=== PATIENT | male | born 1995 | race Hispanic/Latino ===

== ENCOUNTER 2017-07-08 09:05 | Emergency (ER) | payer BC ==
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
[2017-07-08] MEDS ORDERED: Ibuprofen 800 MG TAB ONE (09:48)
== END 2017-07-08 09:51 | disposition home or self-care (01) ==
LOC: ERS 09:05
DX: S60.221A Contusion of right hand, initial encounter (principal); F17.290 Nicotine dependence, other tobacco product, uncomplicated; V49.9XXA Car occupant (driver) (passenger) injured in unspecified traffic accident, initial encounter

== ENCOUNTER 2018-09-09 11:19 | Emergency (ER) | payer BC ==
[2018-09-09] MEDS ORDERED: HYDROcodone/Acetaminophen 10/325 mg Tablet ONE (12:01)
--- NOTE | 2018-09-09 13:59 | RAD ---
RIGHT KNEE 3 VIEWS: HISTORY: Right knee pain. FINDINGS: Joint spaces are preserved. No acute fracture, dislocation, or fluid distention of the suprapatellar bursa. IMPRESSION: No acute osseous abnormalities are demonstrated. POS: [facility]
== END 2018-09-09 13:04 | disposition home or self-care (01) ==
LOC: ERS 11:19
DX: M23.91 Unspecified internal derangement of right knee (principal)

== ENCOUNTER 2018-09-21 13:45 | Outpatient (CLI) | payer BC ==
--- NOTE | 2018-09-21 14:38 | RAD ---
SINUSES COULTER VIEW FOR MRI CLEARANCE: Indications: MRI clearance, assess metal in eyes. FINDINGS: Coulter view shows no evidence of metallic density overlying either orbit. Patient is cleared for MRI. POS: [facility]
--- NOTE | 2018-09-21 16:00 | MRI ---
MRI RIGHT KNEE WITHOUT CONTRAST: 09/21/18 HISTORY: S82.419A - sprain of the medial collateral ligament of the knee. COMPARISON: None. FINDINGS: MEDIAL MENISCUS: There is an undersurface flap of the body of the medial meniscus. Extends to the medial meniscotibial ligament. Root attachment is intact. This involves the peripheral one third of the meniscus. LATERAL MENISCUS: Intact. The ACL, PCL and LCL are intact. There is a complete rupture of the medial collateral ligament, anterior longitudinal and posterior ob lique fibers from the tibial insertion. The distal fibers are retracted approximately 2 cm just dista l to the joint line. There is also a tear of the medial meniscotibial ligament. This tear is partial ly torn from the tibia as well as partial tearing from the meniscus itself. EXTENSOR MECHANISM: The quadriceps tendon, patella and patellar tendon are intact. CARTILAGE: Patellofemoral compartment: Intact. Medial compartment: Intact. Lateral compartment: Intact. BONES: No acute fracture or malalignment. MUSCLES: The muscle signal and bulk is normal. IMPRESSION: Full thickness rupture of the medial collateral ligament which appears to be likely avulsed from the tibial insertion, possible MCL stener. There is retraction approximately 2 cm with also tear of the d eep meniscotibial ligament. The tear involving the tibial insertion as well as tearing extending from the peripheral aspect of the meniscus. POS: [facility]
== END 2018-09-21 13:46 | disposition home or self-care (01) ==
LOC: BICMRI 13:45
PROVIDERS: ATTEND Orthopaedic Surgery
DX: S83.411A Sprain of medial collateral ligament of right knee, initial encounter (principal); S83.241A Other tear of medial meniscus, current injury, right knee, initial encounter
CPT/HCPCS: 70210

== ENCOUNTER 2018-09-28 00:54 | Emergency (ER) | payer BC ==
[2018-09-28] MEDS ORDERED: cefTRIAXone\\ROCEPHIN 2 GM VIAL ONE (01:22)
[2018-09-28 01:24] LABS: #Eosinphils 0.1 thou/uL (0.0-0.7); #Lymphocytes 2.6 thou/uL (1.20-3.40); #Monocytes 0.7 thou/uL (0.11-0.59); #Neutrophils 8.7 thou/uL (1.40-6.50); %Basophils 0.3 % (0.0-1.0); %Eosinophils 1.2 % (0.0-10.0); %Lymphocytes 21.1 % (21.0-51.0); %Neutrophils 71.4 % (42.0-75.0); Hemoglobin 16.5 g/dL (14.0-18.0); Mean Corpuscular Hemoglobin 31.7 pg (27.0-31.0); Mean Corpuscular Volume 90.7 fL (78.0-98.0); Mean Platelet Volume 8.3 fL (7.4-10.4); Platelet Count 248 thou/uL (130-400); RBC Distribution Width 11.2 % (11.5-14.5); Red Blood Cell (RBC) Count 5.21 mill/uL (4.70-6.10); White Blood Cell (WBC) Count 12.1 thou/uL (4.8-10.8)
[2018-09-28 01:45] LABS: ALT (SGPT) 206 U/L (8-55); AST (SGOT) 52 U/L (5-34); Albumin 4.5 g/dL (3.5-5.0); Alkaline Phosphatase 93 U/L (40-150); Anion Gap 14 mmol/L (10-20); BUN (Urea Nitrogen) 11 mg/dL (8.9-20.6); Bilirubin, Total 0.6 mg/dL (0.2-1.2); Calc. Creatinine Clearance 0 mL/min (70-130); Calcium 9.9 mg/dL (7.8-10.44); Carbon Dioxide 24 mmol/L (22-29); Chloride 103 mmol/L (98-107); Estimated GFR-MDRD Greater than 90; Globulin 3.1 g/dL (2.4-3.5); Glucose 87 mg/dL (70-105); Potassium 3.6 mmol/L (3.5-5.1); Protein, Total 7.6 g/dL (6.0-8.3); Sodium 137 mmol/L (136-145)
[2018-09-28] MEDS ORDERED: Dexamethasone 10 MG/ML VIAL ONE (02:23)
[2018-09-28] MEDS ORDERED: Clindamycin/D5W 900 mg/50 ml Premix Bag ONE (03:09)
--- NOTE | 2018-09-28 08:35 | CT ---
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 PT. Reports taking medication and states he cannot swallow at this time. PT. Denies fever. PT. Denies taking. TECHNIQUE: Axial computed tomography images of the neck with intravenous contrast. COMPARISON: No relevant prior studies available. FINDINGS: Oropharynx: There is oropharyngeal tonsillar prominence compatible with tonsillitis in the appropriat e clinical setting. Larynx: Epiglottis is normal in thickness. Submandibular/Parotid glands: Normal. Glands are normal in size. Thyroid: Normal. No enlarged or calcified nodules. Lymph nodes: Normal. No lymphadenopathy. Lung apices: Normal as visualized. Vasculature: No acute findings. Bones/joints: Normal. No acute fracture. Soft tissues: Normal. No significant soft tissue swelling. IMPRESSION: There is oropharyngeal tonsillar prominence compatible with tonsillitis in the appropriate clinical s etting. Thank you for allowing us to participate in the care of your patient. Dictated and Authenticated by: Satinder Gonzalez MD 09/28/2018 2:06 AM Central Time ([place] & [place]) CT NECK SOFT TISSUE POST CONTRAST: HISTORY: Pain. Fever. COMPARISON: None. FINDINGS: This report is in agreement with the preliminary report by [facility]. There is mild fullness of the nasopharynx and palatine tonsillar pillars. The aerodigestive tract is patent. The epiglottis has a normal caliber. There are mildly enlarged bilateral level II lymph nodes, measuring 1.8 x 1.3 on the right and 1.1 x 1.6 on the left. The central spinal canal is unremarkable. The upper mediastinum and lung apices ar e also unremarkable. Cervical spine vertebral body height is maintained. No fracture. IMPRESSION: Prominence of the lymphoid tissue in the aerodigestive tract, as well as in the left and right neck ( level II). Findings are presumed to be due to an infectious/inflammatory process. Correlate clinica lly. Continued surveillance as recommended. Fullness of the left and right palatine tonsils do rais e the possibility of tonsillitis. There is no evidence of a peritonsillar abscess. POS: [facility]
--- NOTE | 2018-10-01 12:54 | CON ---
DATE OF CONSULTATION: 09/28/2018 ER CONSULTATION SUBJECTIVE: Mr. Clark presented to the ER with sudden onset of tonsillar and uvular swelling. There was concern for potential epiglottitis, therefore ENT was called in to access via scope to make sure epiglottis was okay. At the time of arriving, ER physician reported that while he was appeared to be protecting airway, the concern was still there due to the fact that he had tonsil and uvula had swollen over such a rapid period of time. His symptoms began at 11 o'clock. That same evening, the patient had slight fever and difficulty swallowing his own secretions. OBJECTIVE: The patient was well-developed, well-nourished male. He was sitting comfortably, however, was visibly having trouble swallowing his own secretions, though airway appeared to be intact. The patient's nasal area was sprayed with combo spray in preparation for flexible scope examination. Flexible scope examination revealed a normal nasal passage. Upon proceeding with scope, it was viewed that epiglottis was normal and there was no swelling. Both vocal cords were able to be visualized and moved normally with phonation. Airway opened normally with inspiration. No evidence of epiglottitis or airway compromise was noted. ASSESSMENT: Acute tonsillitis with uvulitis. No sign of epiglottitis present. PLAN: Recommended IV clindamycin along with steroids, that ER had previously given to follow up with ENT office first thing in the morning. Job ID: [id number]
== END 2018-09-28 04:50 | disposition home or self-care (01) ==
LOC: ERS 00:54
DX: J03.90 Acute tonsillitis, unspecified (principal); K13.79 Other lesions of oral mucosa
CPT/HCPCS: 70491; 80053; 85025; 96365; 96366; 96367; 96368; J0131; J0696; J1100; J3490

== ENCOUNTER 2018-10-05 05:59 | Day surgery (SDC) | payer BC ==
[2018-09-27 13:57] VITALS: BMI 38.2
[2018-10-05] MEDS ORDERED: Lidocaine 1% (PF) 30 ML VIAL ONE (06:15)
[2018-10-05] MEDS ORDERED: CEFAZOLIN 2 GM/50 ML BAG ONE (06:16)
[2018-10-05] MEDS ORDERED: PROPOFOL 0 ML ONE (06:17)
[2018-10-05] MEDS ORDERED: Midazolam HCl 2 mg/2 ml Vial ONE (06:33)
[2018-10-05] MEDS ORDERED: Fentanyl 100 MCG/2 ML VIAL ONE ×5 (06:33→10:38)
[2018-10-05] MEDS ORDERED: Meperidine HCl/PF 25 MG/ML VIAL ONE (09:26)
[2018-10-05] MEDS ORDERED: Ondansetron HCl/PF 4 MG/2 ML Vial IVP PRN (09:30)
[2018-10-05] MEDS ORDERED: Meperidine HCl/PF 25 MG/ML VIAL SLOW IVP PRN (09:30)
[2018-10-05] MEDS ORDERED: Promethazine HCl 25 MG/ML VIAL IM PRN (09:30)
[2018-10-05] MEDS ORDERED: Promethazine HCl 25 MG/ML VIAL SLOW IVP PRN (09:30)
--- NOTE | 2018-10-05 10:21 | OP ---
DATE OF PROCEDURE: 10/05/2018 PREOPERATIVE DIAGNOSES: Right knee unstable medial collateral ligament/grade 3 medial collateral ligament tear with torn coronary ligaments leading to instability of the medial meniscus. POSTOPERATIVE DIAGNOSES: Right knee unstable medial collateral ligament/grade 3 medial collateral ligament tear with torn coronary ligaments leading to instability of the medial meniscus. PROCEDURES PERFORMED: 1. Right knee exam under anesthesia. 2. Right knee diagnostic arthroscopy. 3. Open medial collateral ligament repair and open medial meniscus repair. ANESTHESIA: The patient had general anesthetic as well as a preoperative block and went to recovery room in stable condition. COMPLICATIONS: There were no complications. RETIREMENT MANAGER: Dr. Papo Colon. IMPLANTS: We used three Arthrex 3-mm Titanium anchors to repair the coronary ligaments. We used a suture bridge including two 475 mm BioComposite SwiveLock and we used a Titanium screw with a smooth washer as a primary repair of the MCL itself. INDICATIONS: This is a 23-year-old, who is over two weeks out from an injury to his right knee that was found on physical exam, as well as MRI to have a full-thickness MCL lesion with instability as well as instability secondary to tearing of the coronary ligaments of the medial meniscus. At this time, he opted to have surgery. After verbal consent forms were explained and signed, he was taken to the operating room and at this time, he was given general anesthetic. Once the level of anesthesia was appropriate, an exam under anesthesia was performed. He had complete instability to valgus stress including flexion and full extension even to the point, where he would pucker at the medial joint. At this time, tourniquet was placed on the right thigh and the leg was prepped and draped in standard surgical fashion. The limb was then exsanguinated and the tourniquet was taken up to 300 mmHg. An inferolateral portal was established. Scope was placed into the knee joint. A needle localization technique was then used to make a medial working portal. Diagnostic arthroscopy commenced in the notch. The ACL and PCL were proven to be intact. The medial compartment completely gapped open. The medial meniscus was not sitting on top of the tibial plateau as I could get the camera underneath the medial meniscus and noted a blood clot in place, where the coronary ligaments normally are. A needle was used to heather the medial joint line for later incision. Lateral compartment was intact. Patellofemoral joint was intact. Scope was removed. Knee was drained. At this time, an oblique incision along the medial aspect of the knee was made with a 10 blade down through skin only. The Bovie was used to coagulate any brisk venous bleeding. The fascia was then entered and for later repair. We then isolated the hamstring tendons went proximal to this, noted a gap in this area. Scissor dissection was used to split this area longitudinally. We were able to get down to the layer of the medial collateral ligament. Secondary to having been injured greater than two weeks ago, the MCL was found, was noted, was pulled on, we could find its origin proximally; however, we were unable to unfurl this to get some type of [id number]-avbg repair. Therefore, at this time, I felt we would do a primary repair with this using a screw washer construct and backed this up with a suture bridge. At this time, we went deep, found the meniscus in the joint line. The coronary ligaments were noted to not be intact. There was a large bulge underneath the meniscus and this was entered sharply with a 15 blade. The meniscus was easily raised off the tibia. We then feathered back some of the coronary ligament remnant on the tibia. We then placed three 3-mm titanium anchors in the subchondral bone and used this to repair our medial meniscus back to the tibia. With a valgus stress being applied and in full extension, these were tied down. Once the medial meniscus had been repaired, we then ran a suture along our MCL proximal, across, and then distal for primary repair using a screw and washer construct. We then palpated our origin along the medial upper condyle and we then used the Bovie to heather just proximal and posterior to this for the first anchor for our suture bridge. This was drilled, tapped, and a 475 BioComposite SwiveLock was placed. The suture was removed from this and the FiberTape was left alone. We then went ahead and drilled, tapped, and placed our Titanium screw with a smooth washer, tying the sutures around this as opposed and bringing the [place] MCL down to the tibia. We then drilled, tapped, and placed the second 475 BioComposite SwiveLock to complete our suture bridge, making sure that it was not too tight and allowed full excursion of the knee. Once this was tightened, we did test our stability and found it to be excellent and at this time, we thoroughly irrigated and dried. We used Vicryl with multiple sutures to close our fascial layer over top of our repair site. 2-0 Vicryl and surgical angelica were used on skin. A bulky sterile dressing was applied. The tourniquet was let down. Toes pinked up nicely. The patient then had a Polar Care unit as well as a hinged postop brace applied to his right lower extremity. The patient was then taken to the recovery room in stable condition. All counts were correct at the end of the case and he did receive preoperative IV antibiotic. Job ID: [id number]
[2018-10-05] MEDS ORDERED: Bupivacaine HCl 0.5%/Epinephrine 1:200,000/PF 30 ml Vial ONE (11:32)
[2018-10-05] MEDS ORDERED: HYDROcodone/Acetaminophen 5/325 mg Tablet ONE (11:48)
[2018-10-05] MEDS ORDERED: Ondansetron PF 4 MG/2 ML Vial ONE (11:58)
[2018-10-05] MEDS ORDERED: Dexamethasone 20 MG/5 ML VIAL ONE (11:58)
[2018-10-05] MEDS ORDERED: Ketorolac Tromethamine 30 MG/ML VIAL ONE (11:58)
[2018-10-05] MEDS ORDERED: PROPOFOL 200 MG/20 ML VIAL ONE (11:58)
[2018-10-05] MEDS ORDERED: PHENYLEPHRINE-NS 100 MCG/ML 10 ML SYRINGE ONE (11:58)
== END 2018-10-05 12:45 | disposition home or self-care (01) ==
LOC: SDC 05:59
PROVIDERS: ATTEND Orthopaedic Surgery
PROC: 0MQN0ZZ Repair Right Knee Bursa and Ligament, Open Approach (ICD-10-PCS; principal; 2018-10-05)
PROC: 0SQC0ZZ Repair Right Knee Joint, Open Approach (ICD-10-PCS; principal; 2018-10-05)
DX: S83.411A Sprain of medial collateral ligament of right knee, initial encounter (principal); S83.241A Other tear of medial meniscus, current injury, right knee, initial encounter
CPT/HCPCS: C1713; J0670; J1100; J1885; J2001; J2175; J2250; J2405; J2704; J3010